=== PATIENT | female | born 1935 | race Caucasian/White ===

== ENCOUNTER 2021-04-11 14:41 | Inpatient (IN) ==
[2021-04-11] MEDS ORDERED: NS 0.9% 1000 ml BAG 1,000 ML IV ONE (17:26)
[2021-04-11 19:31] LABS: Urine Appearance Clear; Urine Bilirubin Negative (Negative); Urine Blood Negative (Negative); Urine Color Yellow; Urine Glucose 1+(50 mg/dL) (Negative); Urine Ketones Negative (Negative); Urine Nitrite Negative (Negative); Urine Protein Negative (Negative); Urine Specific Gravity 1.016 (1.002-1.030); Urine Urobilinogen Negative (Negative)
[2021-04-11] MEDS ORDERED: Ondansetron 4 mg VIAL 2 MG/ML 2 ml VIAL IV PRN (20:21)
[2021-04-11 20:44] LABS: ABS Lymphocytes 0.9 10^3/ul (1.0-4.8); ABS Monocytes 0.5 10^3/ul (0-0.8); ABS Neutrophils 4.4 10^3/ul (1.5-7.7); Eosinophil % 0.5 %; Hematocrit 39 % (35-47); Hemoglobin 13.1 g/dL (12.0-16.0); Lymphocyte % 15.7 %; Mean Corpuscular HGB Conc 34 g/dL (31-36); Mean Corpuscular Hemoglobin 32 pg (27-31); Mean Corpuscular Volume 95 fL (80-97); Mean Platelet Volume 9.7 fL (7.4-10.4); Platelet Count 117 10^3/uL (150-450); Red Cell Distribution Width 14 % (10-15); White Blood Count 5.8 10^3/uL (3.5-10.8)
[2021-04-11 21:05] LABS: Albumin 3.7 g/dL (3.2-5.2); Albumin/Globulin Ratio 1.6 (1-3); Calcium 8.8 mg/dL (8.6-10.3); EGFR African American 67.5 (>60); EGFR Non-African American 55.8 (>60); Globulin 2.3 g/dL (2-4); Potassium 3.3 mmol/L (3.5-5.0); Total Bilirubin 0.6 mg/dL (0.2-1.0)
[2021-04-11] MEDS ORDERED: Iodixanol (CONTRAST) 320 MG/ML 100 ML SDV IV ONE (21:22)
[2021-04-11] MEDS ORDERED: Potassium Chlor 20 meq TAB.ER PO ONE (21:35)
[2021-04-11] MEDS: Latanoprost 0.005% 2.5 ml BTL BOTH EYES SCH (22:39)
[2021-04-11] MEDS: DIPYRIDAMOLE PO SCH (22:53)
[2021-04-11] MEDS: ASPIRIN PO SCH (22:53)
[2021-04-12 08:38] LABS: ABS Eosinophils 0.1 10^3/ul (0-0.6); ABS Monocytes 0.5 10^3/ul (0-0.8); ABS Neutrophils 2.8 10^3/ul (1.5-7.7); Eosinophil % 2.2 %; Hematocrit 37 % (35-47); Hemoglobin 12.4 g/dL (12.0-16.0); Lymphocyte % 23.1 %; Mean Corpuscular HGB Conc 34 g/dL (31-36); Mean Corpuscular Hemoglobin 32 pg (27-31); Mean Corpuscular Volume 94 fL (80-97); Mean Platelet Volume 9.7 fL (7.4-10.4); Nucleated Red Blood Cells % 0.1; Platelet Count 109 10^3/uL (150-450); Red Blood Count 3.88 10^6 /uL (3.70-4.87); Red Cell Distribution Width 14 % (10-15); White Blood Count 4.4 10^3/uL (3.5-10.8)
[2021-04-12 08:54] LABS: Magnesium 2.2 mg/dL (1.9-2.7)
[2021-04-12 08:55] LABS: Calcium 8.9 mg/dL (8.6-10.3); EGFR African American 68.3 (>60); EGFR Non-African American 56.5 (>60); Potassium 3.4 mmol/L (3.5-5.0)
[2021-04-12 09:39] LABS: TSH Ultra Thyroid Stim Horm 1.81 mcIU/mL (0.34-5.60)
[2021-04-12] MEDS: Enoxaparin 40 MG/0.4 ML SYR SUBCUT SCH (10:24)
[2021-04-12 10:56] LABS: Folate > 20.00 ng/mL (5.90-24.80)
[2021-04-12 10:57] LABS: Vitamin B12 726 pg/mL (180-914)
[2021-04-12] MEDS: ASPIRIN PO SCH ×2 (12:27→21:50)
[2021-04-12] MEDS: DIPYRIDAMOLE PO SCH ×2 (12:27→21:50)
[2021-04-12] MEDS: Multivitamins/Minerals TAB PO SCH (12:41)
[2021-04-12] MEDS ORDERED: Polyethylene Glycol 3350 17 GM PACKET PO PRN (14:02)
[2021-04-12] MEDS: Magnesium Hydroxide LIQ 30 ML UDC PO PRN (14:07)
[2021-04-12] MEDS: Latanoprost 0.005% 2.5 ml BTL BOTH EYES SCH (17:49)
[2021-04-13] MEDS: Enoxaparin 40 MG/0.4 ML SYR SUBCUT SCH (09:34)
[2021-04-13] MEDS: DIPYRIDAMOLE PO SCH ×2 (09:38→20:03)
[2021-04-13] MEDS: ASPIRIN PO SCH ×2 (09:38→20:03)
[2021-04-13] MEDS: Multivitamins/Minerals TAB PO SCH (09:40)
[2021-04-13] MEDS: Magnesium Hydroxide LIQ 30 ML UDC PO PRN (11:32)
[2021-04-13] MEDS ORDERED: Lidocaine 2.5%/Prilocain 2.5% 5 GM TUBE TOPICAL ONE (15:08)
[2021-04-13] MEDS: Latanoprost 0.005% 2.5 ml BTL BOTH EYES SCH (18:22)
[2021-04-13] MEDS: Senna TAB 8.6 mg TAB PO PRN (20:04)
[2021-04-14] MEDS: Multivitamins/Minerals TAB PO SCH (09:08)
[2021-04-14] MEDS: ASPIRIN PO SCH ×2 (09:08→20:43)
[2021-04-14] MEDS: DIPYRIDAMOLE PO SCH ×2 (09:08→20:43)
[2021-04-14] MEDS: Latanoprost 0.005% 2.5 ml BTL BOTH EYES SCH (17:52)
[2021-04-14] MEDS: Polyethylene Glycol 3350 17 GM PACKET PO SCH (20:42)
[2021-04-15] MEDS: Multivitamins/Minerals TAB PO SCH (10:05)
[2021-04-15] MEDS: DIPYRIDAMOLE PO SCH ×2 (10:06→20:20)
[2021-04-15] MEDS: Polyethylene Glycol 3350 17 GM PACKET PO SCH (10:06)
[2021-04-15] MEDS: ASPIRIN PO SCH ×2 (10:06→20:20)
[2021-04-15 12:14] LABS: Calcium 8.9 mg/dL (8.6-10.3); EGFR African American 58.8 (>60); EGFR Non-African American 48.6 (>60); Potassium 4.2 mmol/L (3.5-5.0)
[2021-04-15] MEDS: Latanoprost 0.005% 2.5 ml BTL BOTH EYES SCH (17:15)
[2021-04-15] MEDS: Senna TAB 8.6 mg TAB PO PRN (20:15)
[2021-04-16] MEDS: DIPYRIDAMOLE PO SCH (08:56)
[2021-04-16] MEDS: ASPIRIN PO SCH (08:56)
[2021-04-16] MEDS: Polyethylene Glycol 3350 17 GM PACKET PO SCH (08:56)
[2021-04-16] MEDS: Multivitamins/Minerals TAB PO SCH (08:57)
[2021-04-16 10:12] VITALS: BP 118/58
== END 2021-04-16 10:15 | DRG 948 ==
LOC: ED 14:41 → MEDTELE 14:41
PROVIDERS: ADMIT Hospitalist; ATTEND Internal Medicine